=== PATIENT | female | born 1975 | race African-American/Black ===

== ENCOUNTER 2019-07-09 11:15 | Emergency (ER) | payer SELFPAY ==
[~2019-07-09] VITALS: Ht 160 cm; Wt 86.0 kg
[2019-07-09] MEDS ORDERED: BACITRACIN ZINC OINT UDPKT TOP ONE (13:15)
[2019-07-09 13:25] VITALS: BP 153/90
== END 2019-07-09 14:10 | disposition home or self-care (01) ==
LOC: ER 14:07
DX: L02.416 Cutaneous abscess of left lower limb (principal); L97.829 Non-pressure chronic ulcer of other part of left lower leg with unspecified severity
CPT/HCPCS: 99283